=== PATIENT | female | born 1995 | race Hispanic/Latino ===

== ENCOUNTER 2018-10-25 09:35 | Outpatient (CLI) | payer OTHER ==
--- NOTE | 2018-10-25 12:33 | ULT ---
OB ULTRASOUND: INDICATION: Assess anatomy. FINDINGS: There is a single viable intrauterine . Gestational age by ultrasound is 23 weeks 3 days. BPD 23 weeks 5 days HC 23 weeks 4 days AC 23 weeks 1 day FL 23 weeks 5 days EFW: 593 gm, 22 weeks 4 days. Placenta: Fundal. Amniotic fluid: Within normal range. heart rate: 140 b.p.m. Position: Vertex. Cervical length: 8 cm. anatomy evaluated includes intracranial contents, 4-chamber heart, stomach kidneys, cord insert ion, bladder, spine, facial features, extremities, and 3-vessel cord. No abnormality identified. IMPRESSION: A 23-week 3-day gestation by ultrasound measurement. No abnormality identified. POS: [facility]
== END 2018-10-25 09:36 | disposition home or self-care (01) ==
LOC: ULT 09:35
PROVIDERS: ATTEND Family Medicine
DX: O09.292 Supervision of pregnancy with other poor reproductive or obstetric history, second trimester (principal); Z3A.23 23 weeks gestation of pregnancy
CPT/HCPCS: 76805

== ENCOUNTER 2019-02-06 09:41 | Inpatient (IN) | payer OTHER ==
[2019-02-06] MEDS ORDERED: Promethazine HCl 25 MG/ML VIAL IM PRN ×3 (10:02→15:21)
[2019-02-06] MEDS ORDERED: CEFAZOLIN 2 GM in Premix Bag 1 BAG IVPB SCH (10:02)
[2019-02-06] MEDS ORDERED: Bicitra 30 ML UDCUP PO SCH (10:02)
[2019-02-06] MEDS ORDERED: Ondansetron PF 4 MG/2 ML Vial IVP PRN ×3 (10:02→15:21)
[2019-02-06] MEDS ORDERED: Lactated Ringer's 1,000 ML IV SCH (10:02)
[2019-02-06 10:24] VITALS: BMI 28.3
[2019-02-06 10:47] LABS: Mean Corpuscular HGB CONC 31.5 g/dL (32.0-36.0); Mean Corpuscular Hemoglobin 22.6 pg (27.0-31.0); Mean Corpuscular Volume 71.8 fL (78.0-98.0); Red Blood Cell (RBC) Count 3.99 mill/uL (4.20-5.40)
[2019-02-06 11:00] LABS: Mean Platelet Volume 6.4 fL (7.4-10.4); Platelet Count 116 thou/uL (130-400); RBC Distribution Width 16.5 % (11.5-14.5)
[2019-02-06 11:08] LABS: HBSAg Index 0.31 S/CO (0-0.99); Hep B Surf Ag Non-Reactive S/CO (NonReactive); Syphilis Antibody Nonreactive (Nonreactive); Syphilis Antibody Index 0.02 S/CO (<1.00 Non-Reactive)
[2019-02-06] MEDS ORDERED: MORPHINE 5 MG/10 ML PF VIAL ONE (11:49)
[2019-02-06] MEDS ORDERED: Fentanyl 100 MCG/2 ML VIAL ONE (11:49)
[2019-02-06] MEDS ORDERED: ePHEDrine/0.9% NaCl/PF SYRINGE 50 mg/10 ml ONE (11:50)
[2019-02-06] MEDS ORDERED: Phenylephrine HCL 10 MG/ML VIAL ONE ×2 (11:50→16:27)
[2019-02-06] MEDS ORDERED: Oxytocin 10 UNITS/ML VIAL ONE (11:50)
[2019-02-06] MEDS ORDERED: Ketorolac Tromethamine 30 MG/ML VIAL ONE ×2 (11:51→16:27)
[2019-02-06] MEDS ORDERED: Sodium Chloride 0.9% 10 ML ONE (11:51)
[2019-02-06] MEDS ORDERED: Promethazine HCl 25 MG SUPP PR PRN (13:29)
[2019-02-06] MEDS ORDERED: Naloxone HCl 0.4 mg/ml Vial IV PRN (13:29)
[2019-02-06] MEDS ORDERED: diphenhydrAMINE 50 MG/ML VIAL IVP PRN (13:29)
[2019-02-06] MEDS ORDERED: Naloxone HCl 0.4 mg/ml Vial IVP PRN ×2 (13:29)
[2019-02-06] MEDS ORDERED: Communication Order-Pharmacy FS SCH (13:30)
--- NOTE | 2019-02-06 13:51 | PDOC.OPDEL ---
OB Operative/Delivery Note Delivery Dr/Surgeon: Dr. Franklin Assist: Dr. Chavez Pre-Delivery Diagnosis: scheduled section Procedure/Post Delivery Dx: repeat low transverse CS Weeks gestation: 39 (39w0d) Anesthesia: spinal - Findings A Sex: male - Additional Findings/Plan Placenta delivered: manual removal findings: low transverse hysterotomy without extension Estimated blood loss: 590 mL Compilations/Other Findings: Preoperative Diagnosis: 1)Term intrauterine 2)Previous Section Postoperative Diagnosis: 1)Term intrauterine , delivered 2)Previous Section Anesthesia: spinal Indications: The patient is a 23 year old female at 39.0 weeks gestation who presents for a scheduled repeat . Procedure in Detail: After risks, benefits, and alternatives were explained to the patient, she gave informed consent. Pre-operative antibiotics included Cefazolin 2 gram IV. The patient was taken to the operating room and spinal anesthesia was initiated. She was placed in the supine position with a left tilt and prepped and draped in usual sterile fashion. A Pfannenstiel incision was made with a scalpel and carried down to the level of the fascia which was sharply nicked. The fascial cut was extended bilaterally with Burton scissors. The inferior and superior edges of the cut fascial edges were elevated with Amol clamps and the underlying rectus muscles were sharply and bluntly dissected free. The recti were divided and retracted manually. The peritoneum was entered bluntly and retracted manually. A bladder blade was placed and a bladder flap was made with metzembaum scissors. A low transverse score was made with the scalpel and the uterus was entered in the midline bluntly. Clear fluid was seen. The hysterotomy was extended manually. The was noted to be vertex and easily delivered with fundal pressure. Mouth and nares were bulb suctioned. Cord clamped and cut and grossly normal male was handed to waiting nurse. Cord blood was obtained. Placenta was manually extracted, found to be intact with 3 vessel cord and discarded. The uterus was externalized and the endometrium was curetted with a dry lap. The uterus was closed with a running locking 0 Vicryl. Following this a few [id number] sutures were used over hysterotomy for hemostasis. There were a few bleeding areas on the serosal edge that were cauterized with the bovie. Following this hemostasis was noted. The abdomen was irrigated and the hysterotomy was again noted to be hemostatic. Seprafilm was placed over anterior aspect of the uterus and the uterus was placed back in the abdomen. The peritoneum was closed with running non-locking 3-0 vicryl. The rectus muscles were examined and found to have a few bleeding areas that were cauterized with the bovie. The fascia was closed with a running non-locking 0 PDS. The subcutaneous tissue was irrigated and found to be hemostatic. The subcutaneous tissue was approximated with interrupted 3-0 vicryl. The skin was approximated with stapes. A pressure dressing was placed. All counts were correct. The patient tolerated the procedure well and was taken to the recovery room in stable condition. Time of delivery: 1303 on 02/06/19 Quantitative Blood Loss: 590 ml Complications: None Specimens: Cord blood sent to lab for blood type. Findings: Grossly normal male infant went to nursery for routine care. Grossly normal placenta with 3 vessel cord discarded. Drains: Bell to gravity draining clear urine Post delivery plan: routine recovery
[2019-02-06] MEDS ORDERED: Bisacodyl 10 MG SUPP PR PRN (15:21)
[2019-02-06] MEDS ORDERED: diphenhydrAMINE 25 MG CAP PO PRN (15:21)
[2019-02-06] MEDS ORDERED: Simethicone Chewable 80 MG TAB PO PRN (15:21)
[2019-02-06] MEDS ORDERED: Lanolin Ointment 7 GM TUBE TOP PRN (15:21)
[2019-02-06] MEDS ORDERED: Meperidine HCl/PF 25 MG/ML VIAL IM PRN (15:21)
[2019-02-06] MEDS ORDERED: NS / Oxytocin 40 units/1000ml 1,000 ML IV SCH (15:21)
[2019-02-06] MEDS ORDERED: ePHEDrine 50 MG/ML VIAL ONE (16:27)
[2019-02-06] MEDS ORDERED: Ketorolac Tromethamine 30 MG/ML VIAL IVP PRN (18:00)
[2019-02-06] MEDS: Ferrous Sulfate 325 MG TAB PO SCH (18:42)
[2019-02-06] MEDS: Ketorolac Tromethamine 30 MG/ML VIAL IVP SCH (18:46)
[2019-02-06] MEDS: Docusate Calcium (SURFAK) 240 MG CAP PO SCH (21:59)
[2019-02-07] MEDS: Ketorolac Tromethamine 30 MG/ML VIAL IVP SCH ×2 (00:09→05:34)
[2019-02-07 06:03] LABS: Hemoglobin 7.8 g/dL (12.0-16.0); Mean Corpuscular Hemoglobin 22.7 pg (27.0-31.0); Mean Corpuscular Volume 73.2 fL (78.0-98.0); Mean Platelet Volume 10.7 fL (7.4-10.4); Platelet Count 107 thou/uL (130-400); RBC Distribution Width 16.5 % (11.5-14.5); Red Blood Cell (RBC) Count 3.45 mill/uL (4.20-5.40); White Blood Cell (WBC) Count 7.8 thou/uL (4.8-10.8)
[2019-02-07] MEDS: Prenatal Vitamin 1 TAB PO SCH (08:16)
[2019-02-07] MEDS: Docusate Calcium (SURFAK) 240 MG CAP PO SCH ×2 (08:16→21:09)
[2019-02-07] MEDS: Ferrous Sulfate 325 MG TAB PO SCH ×2 (08:16→16:40)
[2019-02-07] MEDS: HYDROcodone/Acetaminophen 5/325 mg Tablet PO PRN ×4 (12:49→23:25)
[2019-02-07] MEDS: Ibuprofen 800 MG TAB PO SCH ×2 (14:22→21:09)
[2019-02-08] MEDS: Ibuprofen 800 MG TAB PO SCH ×3 (06:05→21:55)
[2019-02-08] MEDS: Ferrous Sulfate 325 MG TAB PO SCH ×2 (07:27→17:41)
[2019-02-08] MEDS: Docusate Calcium (SURFAK) 240 MG CAP PO SCH ×2 (07:27→21:55)
[2019-02-08] MEDS: Prenatal Vitamin 1 TAB PO SCH (07:27)
[2019-02-08] MEDS: HYDROcodone/Acetaminophen 5/325 mg Tablet PO PRN ×4 (07:29→21:55)
[2019-02-09] MEDS: HYDROcodone/Acetaminophen 5/325 mg Tablet PO PRN ×2 (05:50→13:03)
[2019-02-09] MEDS: Ibuprofen 800 MG TAB PO SCH (05:50)
[2019-02-09] MEDS: Docusate Calcium (SURFAK) 240 MG CAP PO SCH (07:55)
[2019-02-09] MEDS: Prenatal Vitamin 1 TAB PO SCH (07:55)
[2019-02-09] MEDS: Ferrous Sulfate 325 MG TAB PO SCH (07:55)
[2019-02-09] MEDS ORDERED: Measles/Mumps/Rubella 10 MCG/0.5 ML VIAL SC ONE (10:45)
[2019-02-09 12:26] VITALS: BP 111/74; TEMP 98.6
== END 2019-02-09 13:35 | disposition home or self-care (01) | DRG 788 ==
LOC: L&D 09:41 → 3SE 16:32
PROVIDERS: ADMIT Family Medicine; ATTEND Family Medicine
PROC: 10D00Z1 Extraction of Products of Conception, Low, Open Approach (ICD-10-PCS; principal; 2019-02-06)
DX: O34.211 Maternal care for low transverse scar from previous cesarean delivery (principal); Z3A.39 39 weeks gestation of pregnancy; Z37.0 Single live birth; O99.02 Anemia complicating childbirth; D64.9 Anemia, unspecified
CPT/HCPCS: 36415; 51702; 85027; 86780; 86850; 86900; 86901; 87340; 90707; J0690; J1885; J2270; J2370; J2405; J2590; J3010

== ENCOUNTER 2020-07-12 17:14 | Emergency (ER) | payer OTHER ==
[2020-07-13 18:29] LABS: Chlamydia by PCR Not Detected (NotDetected); GC by PCR Not Detected (NotDetected)
== END 2020-07-12 18:22 | disposition home or self-care (01) ==
LOC: ERS 17:14
DX: N76.0 Acute vaginitis (principal); B96.89 Other specified bacterial agents as the cause of diseases classified elsewhere
CPT/HCPCS: 87480; 87491; 87510; 87591; 87660; 99284

== ENCOUNTER 2020-11-21 03:53 | Emergency (ER) | payer MEDICAID, SELFPAY ==
[2020-11-21 04:34] LABS: #Basophils 0.1 thou/uL (0.0-0.2); #Eosinphils 0.2 thou/uL (0.0-0.7); #Lymphocytes 4.4 thou/uL (1.20-3.40); #Monocytes 0.7 thou/uL (0.11-0.59); #Neutrophils 5.8 thou/uL (1.40-6.50); %Basophils 0.6 % (0.0-1.0); %Eosinophils 1.8 % (0.0-10.0); %Lymphocytes 39.5 % (21.0-51.0); %Monocytes 6.1 % (0.0-10.0); Hemoglobin 12.8 g/dL (12.0-16.0); Mean Corpuscular HGB CONC 35.2 g/dL (32.0-36.0); Mean Corpuscular Hemoglobin 30.4 pg (27.0-31.0); Mean Corpuscular Volume 86.3 fL (78.0-98.0); Mean Platelet Volume 7.5 fL (7.4-10.4); Platelet Count 192 thou/uL (130-400); RBC Distribution Width 11.1 % (11.5-14.5); White Blood Cell (WBC) Count 11.1 thou/uL (4.8-10.8)
[2020-11-21 04:53] LABS: ALT (SGPT) 17 U/L (8-55); AST (SGOT) 23 U/L (5-34); Albumin 4.5 g/dL (3.5-5.0); Alkaline Phosphatase 74 U/L (40-110); Anion Gap 13 mmol/L (10-20); BUN (Urea Nitrogen) 20 mg/dL (7.0-18.7); Bacteria/HPF None Seen HPF (None Seen); Bilirubin Negative (Negative); Bilirubin, Total 0.4 mg/dL (0.2-1.2); Blood, Urine 1+ (Negative); Calc. Creatinine Clearance 0 mL/min (70-130); Carbon Dioxide 20 mmol/L (22-29); Chloride 107 mmol/L (98-107); Clarity Clear (Clear); Glucose 98 mg/dL (70-105); Glucose, Urine (Dipstick) Normal (Negative); Ketone, Urine Negative (Negative); Leukocyte Negative Leu/uL (Negative); Nitrite Negative (Negative); Potassium 3.3 mmol/L (3.5-5.1); Pregnancy Test - Urine (BHCG) Negative (Negative); Pregu Control Background? CLEAR/WHITE (CLR/WHITE); Pregu Control Bar Appear? YES (CONTROL BAR); Protein, Total 7.5 g/dL (6.0-8.3); Protein, Urine (Dipstick) 20 mg/dL (Neg-Trace); RBC/HPF 0-3 HPF (0-3); Sodium 137 mmol/L (136-145); Specific Gravity 1.039 (1.002-1.036); Specific Gravity, Urine 1.039 (1.002-1.036); Squamous Epithelial 0-3 HPF (0-3); Urobilinogen Normal mg/dL (Less than 2); WBC/HPF 0-3 HPF (0-3); pH, Urine 5.5 (5.0-9.0)
[2020-11-21] MEDS ORDERED: Ketorolac Tromethamine 30 MG/ML VIAL ONE (05:41)
== END 2020-11-21 06:44 | disposition home or self-care (01) ==
LOC: ERS 03:53
DX: K59.00 Constipation, unspecified (principal); K64.4 Residual hemorrhoidal skin tags
CPT/HCPCS: 74022; 80053; 81003; 81015; 81025; 82274; 85025; 96374; J1885

== ENCOUNTER 2023-08-08 15:29 | Outpatient (CLI) | payer OTHER | END 2023-08-08 15:30 | disposition home or self-care (01) | LOC: BICULT 15:29 | PROVIDERS: ATTEND Family Medicine | DX: O09.892 Supervision of other high risk pregnancies, second trimester (principal); Z3A.25 25 weeks gestation of pregnancy | CPT/HCPCS: 76805 ==

== ENCOUNTER 2025-04-19 16:47 | Emergency (ER) | payer OTHER ==
[2025-04-19] MEDS ORDERED: Ondansetron PF 4 MG/2 ML Vial ONE (17:41)
[2025-04-19 17:50] LABS: #Basophils Less than 0.03 10x3/uL (0.0-0.2); #Eosinophils 0.15 10x3/uL (0.0-0.7); #Monocytes 0.37 10x3/uL (0.11-0.59); #Neutrophils 3.72 10x3/uL (1.40-6.50); %Basophils 0.3 % (0.0-1.0); %Eosinophils 2.4 % (0.0-10.0); %Lymphocytes 32.1 % (21.0-51.0); %Monocytes 5.9 % (0.0-10.0); %Neutrophils 59.0 % (42.0-75.0); Hematocrit 34.4 % (36.0-47.0); Hemoglobin 11.3 g/dL (12.0-16.0); Mean Corpuscular Hemoglobin 26.7 pg (27.0-31.0); Mean Corpuscular Volume 81.3 fL (78.0-98.0); Platelet Count 195 10x3/uL (130-400); Red Blood Cell (RBC) Count 4.23 mill/uL (4.20-5.40); White Blood Cell (WBC) Count 6.30 10x3/uL (4.8-10.8)
[2025-04-19 17:59] LABS: BHCG - Serum Negative (NEGATIVE); Pregs Control Background? CLEAR/WHITE (CLR/WHITE); Pregs Control Bar Appear? YES (CONTROL BAR)
[2025-04-19 18:08] LABS: ALT (SGPT) 16 U/L (Less than 34); AST (SGOT) 27 U/L (11-34); Albumin 4.1 g/dL (3.1-4.5); Alkaline Phosphatase 75 U/L (40-110); Anion Gap 15 mmol/L (10-20); BUN (Urea Nitrogen) 14 mg/dL (7.0-18.7); Bilirubin, Total 0.4 mg/dL (0.3-1.2); Calc. Creatinine Clearance 0 mL/min (70-130); Calcium 8.8 mg/dL (7.8-10.44); Carbon Dioxide 21 mmol/L (22-29); Chloride 110 mmol/L (98-107); Globulin 3.2 g/dL (2.4-3.5); Glucose 90 mg/dL (70-105); Lipase 15 U/L (8-78); Magnesium 1.8 mg/dL (1.6-2.6); Potassium 3.7 mmol/L (3.5-5.1); Sodium 142 mmol/L (136-145)
[2025-04-19 18:18] LABS: Bacteria/HPF None Seen HPF (None Seen); CAUTI Indications for Culture Acute Hematuria; Glucose, Urine (Dipstick) Normal (Negative); Leukocyte Negative Leu/uL (Negative); Protein, Urine (Dipstick) Negative (Neg-Trace); RBC/HPF 0-3 HPF (0-3); Specific Gravity, Urine 1.026 (1.002-1.036); WBC/HPF 0-3 HPF (0-3)
[2025-04-19 18:20] LABS: Urine Culture Reflex No No
== END 2025-04-19 19:20 | disposition home or self-care (01) ==
LOC: ERS 16:47
DX: T62.91XA Toxic effect of unspecified noxious substance eaten as food, accidental (unintentional), initial encounter (principal)
CPT/HCPCS: 80053; 81001; 83690; 83735; 84703; 85025; 96374; 96375; J2270; J2405